=== PATIENT | female | born 1980 | race Caucasian/White ===

== ENCOUNTER 2018-06-04 00:58 | Inpatient (IN) | payer BC ==
[~2018-06-04] VITALS: Ht 160 cm; Wt 68.0 kg
[2018-06-04 01:07] VITALS: Ht 160 cm; Wt 68.0 kg
[2018-06-04 01:59] LABS: microscopic required? YES; urine erythrocyte 3+ (NEGATIVE)
[2018-06-04 02:07] LABS: CALCIUM 8.1 mg/dL (8.5-10.1); CARBON DIOXIDE 26.4 mmol/L (21-32); CHLORIDE SERUM 106 mmol/L (98-107); CREATININE SERUM 0.7 mg/dL (0.6-1.0); GFR1 > 60 mL/min; GLUCOSE SERUM 93 mg/dL (74-106); POTASSIUM SERUM 4.1 mmol/L (3.5-5.1); SODIUM SERUM 140 mmol/L (136-145)
[2018-06-04 02:11] LABS: BASOPHIL % 0.4 % (0-2); PLATELET COUNT 204 x10^3mcL (130-400)
[2018-06-04 02:16] LABS: RED CELL DISTRIBUTION WIDTH 20.1 % (11.5-14.5)
[2018-06-04 02:18] LABS: AMPHETAMINE QUAL UR NONE DETECTED (See below)
[2018-06-04 02:20] LABS: ALBUMIN 3.4 g/dL (3.4-5.0); ALKALINE PHOSPHATASE 61 U/L (46-116); ALT/SGPT 20 U/L (14-59); AST/SGOT 14 U/L (15-37); BILIRUBIN TOTAL 0.34 mg/dL (0.20-1.00); FREE T4 1.06 ng/dL (0.76-1.46); LIPASE 169 IU/L (73-393); TOTAL PROTEIN, SERUM 6.5 g/dL (6.4-8.2)
[2018-06-04 05:12] VITALS: BP 101/60
[2018-06-04 05:59] VITALS: BP 101/60
[2018-06-04] MEDS ORDERED: SENNA8.6 M2 PO (09:29)
[2018-06-04] MEDS ORDERED: FERROUS SULFAT325 M2 PO (09:29)
[2018-06-04] MEDS ORDERED: PEPCID20 MG PO (09:29)
[2018-06-04 09:56] VITALS: BP 100/59
[2018-06-04 10:35] LABS: TOTAL IRON BINDING CAPACITY 324 ug/dL (250-450)
[2018-06-04 10:36] LABS: IRON 11 ug/dL (50-170)
[2018-06-04 14:18] VITALS: BP 96/52
[2018-06-04 18:28] VITALS: BP 96/54
[2018-06-04 18:34] VITALS: BP 96/54
== END 2018-06-04 19:10 | disposition home or self-care (01) | DRG 312 ==
LOC: ED 00:58 → DU 03:20 → UNDODEPER 04:50 → DU 05:14
PROVIDERS: Emergency Medicine; Internal Medicine Pulmonary Disease
DX: R55 Syncope and collapse (principal); N92.0 Excessive and frequent menstruation with regular cycle; G43.909 Migraine, unspecified, not intractable, without status migrainosus; K29.70 Gastritis, unspecified, without bleeding; D50.9 Iron deficiency anemia, unspecified
CPT/HCPCS: 82962; 83880; 84439; 85378; J2916; J7050; Q9967